=== PATIENT | female | born 1970 | race Hispanic/Latino ===

== ENCOUNTER 2016-12-09 13:34 | Emergency (ER) | payer MEDICAID | END 2016-12-09 13:57 | disposition left against medical advice (07) | LOC: ED 13:34 | DX: Z00.8 Encounter for other general examination (principal); Z53.21 Procedure and treatment not carried out due to patient leaving prior to being seen by health care provider ==

== ENCOUNTER 2022-01-02 18:51 | Emergency (ER) | payer MEDICAID ==
--- NOTE | 2022-01-02 21:01 | Emergency Department Report ---
HPI - General Chief Complaint: Psych Time Seen by Provider: 01/02/22 20:46 - HPI HPI: Room 16 The patient is a 51-year-old female present with chief complaint of suicidal ideation. Patient states she is felt suicidal for months. Patient states she is suicidal for the past several months. Patient states approximately 7 days ago she attempted overdose on Lortab ED Past Medical Hx - Past Medical History Previous Medical History?: Yes Hx Psychiatric Treatment: Yes (BIPOLAR) - Surgical History Past Surgical History?: No ED Review of Systems ROS: Stated complaint: GENERAL SICKNESS Other details as noted in HPI Physical Exam - Physical Exam Vital Signs: Vital Signs 01/02/22 19:03 Temperature 98.4 F Pulse Rate 64 Respiratory 16 Rate Blood Pressure 119/77 [Left] O2 Sat by Pulse 99 Oximetry ED Course Vital Signs 01/02/22 19:03 Temperature 98.4 F Pulse Rate 64 Respiratory 16 Rate Blood Pressure 119/77 [Left] O2 Sat by Pulse 99 Oximetry ED Medical Decision Making - Lab Data Result diagrams: 01/02/22 23:00 01/02/22 23:00 Laboratory Tests 01/02/22 01/02/22 01/02/22 21:09 21:09 23:00 WBC 6.8 RBC 4.63 Hgb 13.9 Hct 43.1 H MCV 93 MCH 30 MCHC 32 RDW 14.1 Plt Count 256 Lymph % (Auto) 16.1 [place] % (Auto) 10.5 H Eos % (Auto) 3.2 Baso % (Auto) 0.4 Lymph # (Auto) 1.1 L [place] # (Auto) 0.7 Eos # (Auto) 0.2 Baso # (Auto) 0.0 Seg Neutrophils % 69.8 Seg Neutrophils # 4.8 PT INR APTT Sodium Potassium Chloride Carbon Dioxide Anion Gap BUN Creatinine Estimated GFR BUN/Creatinine Ratio Glucose Calcium Total Bilirubin AST ALT Alkaline Phosphatase Total Protein Albumin Albumin/Globulin Ratio Urine Color Yellow Urine Turbidity Clear Urine pH 6.0 Ur Specific [place] 1.008 Urine Protein <15 mg/dl Urine Glucose (UA) Neg Urine Ketones Neg Urine Blood Neg Urine Nitrite Neg Urine Bilirubin Neg Urine Urobilinogen < 2.0 Ur Leukocyte Esterase Mod Urine WBC (Auto) 29.0 H Urine RBC (Auto) < 1.0 U Epithel Cells (Auto) < 1.0 Urine Bacteria (Auto) 1+ Hyaline Casts 3 Urine Mucus Few Salicylates Urine Opiates Screen Negative Urine Methadone Screen Negative Acetaminophen Ur Barbiturates Screen Negative Ur Phencyclidine Scrn Negative Ur Amphetamines Screen Negative U Benzodiazepines Scrn Negative Urine Cocaine Screen Positive U Marijuana (THC) Screen Positive Drugs of Abuse Note Disclamer Plasma/Serum Alcohol 01/02/22 01/02/22 01/02/22 23:00 23:00 23:00 WBC RBC Hgb Hct MCV MCH MCHC RDW Plt Count Lymph % (Auto) [place] % (Auto) Eos % (Auto) Baso % (Auto) Lymph # (Auto) [place] # (Auto) Eos # (Auto) Baso # (Auto) Seg Neutrophils % Seg Neutrophils # PT 12.6 INR 0.86 L APTT 31.0 Sodium 141 Potassium 3.4 L Chloride 101.9 Carbon Dioxide 26 Anion Gap 17 BUN 8 Creatinine 0.6 Estimated GFR > 60 BUN/Creatinine Ratio 13 Glucose 111 H Calcium 9.0 Total Bilirubin < 0.20 AST 11 ALT 10 Alkaline Phosphatase 101 Total Protein 6.7 Albumin 3.7 L Albumin/Globulin Ratio 1.2 Urine Color Urine Turbidity Urine pH Ur Specific [place] Urine Protein Urine Glucose (UA) Urine Ketones Urine Blood Urine Nitrite Urine Bilirubin Urine Urobilinogen Ur Leukocyte Esterase Urine WBC (Auto) Urine RBC (Auto) U Epithel Cells (Auto) Urine Bacteria (Auto) Hyaline Casts Urine Mucus Salicylates < 0.3 L Urine Opiates Screen Urine Methadone Screen Acetaminophen Ur Barbiturates Screen Ur Phencyclidine Scrn Ur Amphetamines Screen U Benzodiazepines Scrn Urine Cocaine Screen U Marijuana (THC) Screen Drugs of Abuse Note Plasma/Serum Alcohol 01/02/22 01/02/22 23:00 23:00 WBC RBC Hgb Hct MCV MCH MCHC RDW Plt Count Lymph % (Auto) [place] % (Auto) Eos % (Auto) Baso % (Auto) Lymph # (Auto) [place] # (Auto) Eos # (Auto) Baso # (Auto) Seg Neutrophils % Seg Neutrophils # PT INR APTT Sodium Potassium Chloride Carbon Dioxide Anion Gap BUN Creatinine Estimated GFR BUN/Creatinine Ratio Glucose Calcium Total Bilirubin AST ALT Alkaline Phosphatase Total Protein Albumin Albumin/Globulin Ratio Urine Color Urine Turbidity Urine pH Ur Specific [place] Urine Protein Urine Glucose (UA) Urine Ketones Urine Blood Urine Nitrite Urine Bilirubin Urine Urobilinogen Ur Leukocyte Esterase Urine WBC (Auto) Urine RBC (Auto) U Epithel Cells (Auto) Urine Bacteria (Auto) Hyaline Casts Urine Mucus Salicylates Urine Opiates Screen Urine Methadone Screen Acetaminophen 5.0 L Ur Barbiturates Screen Ur Phencyclidine Scrn Ur Amphetamines Screen U Benzodiazepines Scrn Urine Cocaine Screen U Marijuana (THC) Screen Drugs of Abuse Note Plasma/Serum Alcohol < 0.01 Critical care attestation.: If time is entered above; I have spent that time in minutes in the direct care of this critically ill patient, excluding procedure time. ED Disposition Clinical Impression: Suicidal ideation Disposition: 30 STILL A PATIENT Is pt being admited?: No Does the pt Need Aspirin: No Condition: Stable Referrals: BETO CLEMENTE MD [Staff Physician] - MARIANNE (Dr. Clemente FO[employer]ER. Please follow-up with him for further evaluate) Time of Disposition: 23:55 (Awaiting psych eval)
[2022-01-02 21:38] LABS: Bilirubin,Urine NEG (Negative); Blood,Urine NEG (Negative); Color,Urine Yellow (Yellow); Protein,Urine <15 mg/dL mg/dL (Negative); Urobilinogen,Urine < 2.0 mg/dL (<2.0)
[2022-01-02 21:42] LABS: Bacteria,Urine 1+ /HPF (Negative); Hyaline Casts,Urine 3 /LPF; Mucus,Urine FEW /HPF; RBC,Urine < 1.0 /HPF (0.0-6.0)
[2022-01-02 21:46] LABS: Amphetamine Screen,Urine Negative; Benzodiazepines Screen,Urine Negative; Methadone Screen,Urine Negative; Opiate Screen,Urine Negative
[2022-01-02] MEDS ORDERED: levoFLOXacin 500 MG TAB PO ONE (21:52)
[2022-01-02 23:20] LABS: Cannabinoid Screen,Urine Positive; Cocaine Screen,Urine Positive
[2022-01-02 23:31] LABS: Basophils % (Auto) 0.4 % (0.0-1.8); Eosinophils # (Auto) 0.2 K/mm3 (0.0-0.4); Eosinophils % (Auto) 3.2 % (0.0-4.3); Hematocrit 43.1 % (30.3-42.9); Hemoglobin 13.9 gm/dl (10.1-14.3); Lymphocytes # (Auto) 1.1 K/mm3 (1.2-5.4); Lymphocytes % (Auto) 16.1 % (13.4-35.0); Mean Corpuscular HGB Conc 32 % (30-34); Mean Corpuscular Volume 93 fl (79-97); Monocytes # (Auto) 0.7 K/mm3 (0.0-0.8); Monocytes % (Auto) 10.5 % (0.0-7.3); Platelet Count 256 K/mm3 (140-440); Red Blood Count 4.63 M/mm3 (3.65-5.03); Red Cell Distribution Width 14.1 % (13.2-15.2)
[2022-01-02 23:40] LABS: Alanine Aminotransferase 10 units/L (7-56); Albumin 3.7 g/dL (3.9-5); Blood Urea Nitrogen 8 mg/dL (7-17); Hemolysis Index 6
[2022-01-02 23:41] LABS: BUN/Creatinine Ratio 13
[2022-01-02] MEDS ORDERED: POTASSIUM CHLORIDE ER 20 MEQ TAB PO ONE (23:47)
[2022-01-02 23:53] LABS: INR 0.86 (0.87-1.13)
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
[2022-01-03 10:52] VITALS: BP 109/64
[2022-01-03] MEDS ORDERED: SERTRALINE 25 MG TAB PO SCH (11:00)
[2022-01-03] MEDS ORDERED: ARIPiprazole 5 MG TAB PO SCH (11:00)
[2022-01-03] MEDS ORDERED: DOXEPIN 10 MG CAP PO SCH (22:00)
== END 2022-01-03 17:24 | disposition short-term general hospital (02) ==
LOC: ED 18:51
DX: R45.851 Suicidal ideations (principal); F31.9 Bipolar disorder, unspecified; Z20.822 Contact with and (suspected) exposure to COVID-19; Z79.899 Other long term (current) drug therapy
CPT/HCPCS: 36415; 80053; 80307; 81001; 85025; 85610; 85730; 87086; 99285; U0003; 80320; G0480